=== PATIENT | male | born 1965 | race Caucasian/White ===

== ENCOUNTER 2023-08-23 16:02 | Emergency (ER) | payer BC ==
[2023-08-23] MEDS: Ondansetron 4 MG/2 ML SDV IVPUSH STA (16:37)
[2023-08-23] MEDS: Sodium Chloride 0.9% 1,000 ML IV ONE (16:37)
[2023-08-23] MEDS: Acetaminophen 325 MG Tab PO ONE (16:37)
[2023-08-23 16:45] LABS: BASOPHILS ABSOLUTE AUTO 0.04 10^3/uL (0.00-0.50); BASOPHILS PERCENT AUTO 0.5 % (0-1); EOSINOPHILS ABSOLUTE AUTO 0.03 10^3/uL (0.00-1.50); EOSINOPHILS PERCENT AUTO 0.4 % (0-6); HEMATOCRIT 47.2 % (42.0-52.0); HEMOGLOBIN 16.4 g/dL (14.0-18.0); IMMATURE GRAN ABSOLUTE AUTO 0.02 10^3/uL (0.00-0.49); IMMATURE GRAN PERCENT AUTO 0.2 % (0.0-4.9); LYMPHOCYTES ABSOLUTE AUTO 1.17 10^3/uL (0.60-5.00); LYMPHOCYTES PERCENT AUTO 14.1 % (24-44); MEAN CORPUSCULAR HEMOGLOBIN 33.5 pg (27.0-32.0); MEAN CORPUSCULAR HGB CONC 34.7 g/dL (32.0-36.0); MEAN CORPUSCULAR VOLUME 96.3 fL (83.0-97.0); MONOCYTES ABSOLUTE AUTO 0.58 10^3/uL (0.00-1.50); NEUTROPHILS ABSOLUTE AUTO 6.48 x10^3/uL (1.80-8.00); NEUTROPHILS PERCENT AUTO 77.8 % (41-71); PLATELET COUNT,PLT 128 10^3/uL (150-400); WHITE BLOOD CELL COUNT,WBC 8.3 10^3/uL (4.0-11.0)
[2023-08-23 16:57] LABS: ALANINE AMINOTRANSFERASE,ALT 143 U/L (12-78); ALBUMIN 4.1 g/dL (3.4-5.0); ALKALINE PHOSPHATASE 92 U/L (46-116); ASPARTATE AMNIOTRANSFERASE,AST 155 U/L (15-37); BILIRUBIN TOTAL 1.7 mg/dL (0.0-1.0); BLOOD UREA NITROGEN,BUN 5 mg/dL (7-18); C-REACTIVE PROTEIN < 0.50 mg/dL (<=0.50); CALCIUM 9.1 mg/dL (8.4-10.1); CARBON DIOXIDE,CO2 24 mmol/L (21-32); CHLORIDE,CL 99 mEq/L (98-106); EST CRCL DRUG DOSING (CG) 82.48 mL/min; ESTIMATED GFR 88 mL/min (>=60); GLUCOSE RANDOM 158 mg/dL (75-99); POTASSIUM,K 3.8 mEq/L (3.5-5.0); PROTEIN TOTAL,TP 7.9 g/dL (6.4-8.2); SODIUM,NA 139 mEq/L (136-145)
[2023-08-23 17:21] LABS: CORONAVIRUS COVID-19 NAA NEGATIVE (NEGATIVE); INFLUENZA A NAA NEGATIVE (NEGATIVE); INFLUENZA B NAA NEGATIVE (NEGATIVE); RESPIRATORY SYNCYTIAL VIR NAA NEGATIVE (NEGATIVE)
[2023-08-23] MEDS: Take Home: Ondansetron 4 MG Tab.DIS, 2 Tab Pack PO ONE (18:07)
== END 2023-08-23 18:10 | disposition home or self-care (01) ==
LOC: CC.ED 16:02
DX: R11.2 Nausea with vomiting, unspecified (principal)
CPT/HCPCS: 0241U; 36415; 71046; 80053; 85025; 86140; 96361; 96374; 99284; 99284-25; A9270-GY; J2405; J7030

== ENCOUNTER 2023-09-30 19:09 | Observation (INO) | payer BC ==
[2023-09-30] MEDS: Ondansetron 4 MG/2 ML SDV IVPUSH PRN (19:34)
[2023-09-30] MEDS: Sodium Chloride 0.9% 1,000 ML IV SCH ×2 (19:34→21:14)
[2023-09-30 19:36] LABS: BASOPHILS ABSOLUTE AUTO 0.06 10^3/uL (0.00-0.50); BASOPHILS PERCENT AUTO 0.7 % (0-1); EOSINOPHILS ABSOLUTE AUTO 0.06 10^3/uL (0.00-1.50); EOSINOPHILS PERCENT AUTO 0.7 % (0-6); HEMATOCRIT 44.5 % (42.0-52.0); HEMOGLOBIN 15.5 g/dL (14.0-18.0); IMMATURE GRAN ABSOLUTE AUTO 0.03 10^3/uL (0.00-0.49); IMMATURE GRAN PERCENT AUTO 0.3 % (0.0-4.9); LYMPHOCYTES PERCENT AUTO 13.5 % (24-44); MEAN CORPUSCULAR HEMOGLOBIN 34.7 pg (27.0-32.0); MEAN CORPUSCULAR HGB CONC 34.8 g/dL (32.0-36.0); MEAN CORPUSCULAR VOLUME 99.6 fL (83.0-97.0); MONOCYTES ABSOLUTE AUTO 0.59 10^3/uL (0.00-1.50); MONOCYTES PERCENT AUTO 6.6 % (0-10); NEUTROPHILS ABSOLUTE AUTO 6.94 x10^3/uL (1.80-8.00); NEUTROPHILS PERCENT AUTO 78.2 % (41-71); PLATELET COUNT,PLT 137 10^3/uL (150-400); RED BLOOD CELL COUNT 4.47 x10^6/uL (4.50-6.00); WHITE BLOOD CELL COUNT,WBC 8.9 10^3/uL (4.0-11.0)
[2023-09-30 19:49] LABS: ALBUMIN 3.7 g/dL (3.4-5.0); BILIRUBIN TOTAL 2.1 mg/dL (0.0-1.0); C-REACTIVE PROTEIN 0.92 mg/dL (<=0.50); CALCIUM 9.5 mg/dL (8.4-10.1); CREATININE 0.9 mg/dL (0.7-1.3); EST CRCL DRUG DOSING (CG) 91.65 mL/min; MAGNESIUM 1.7 mg/dL (1.8-2.4); POTASSIUM,K 3.6 mEq/L (3.5-5.0); PROTEIN TOTAL,TP 7.7 g/dL (6.4-8.2)
[2023-09-30] MEDS: LORazepam 2 MG/ML SDV IVPUSH ONE (20:02)
[2023-09-30] MEDS ORDERED: Ondansetron 4 MG/2 ML SDV IV PRN (20:39)
[2023-09-30] MEDS ORDERED: Ondansetron 4 MG Tab.DIS PO PRN (20:39)
[2023-09-30] MEDS ORDERED: Sodium Chloride 0.9% 10 ML Syringe FLUSH PRN (20:39)
[2023-09-30] MEDS: Thiamine 100 MG Tab PO SCH (21:13)
[2023-09-30] MEDS: Folic Acid 1 MG Tab PO SCH (21:13)
[2023-10-01] MEDS: LORazepam 2 MG/ML SDV IVPUSH PRN (04:29)
[2023-10-01 07:50] LABS: BASOPHILS ABSOLUTE AUTO 0.06 10^3/uL (0.00-0.50); BASOPHILS PERCENT AUTO 0.8 % (0-1); EOSINOPHILS ABSOLUTE AUTO 0.12 10^3/uL (0.00-1.50); EOSINOPHILS PERCENT AUTO 1.7 % (0-6); HEMATOCRIT 42.6 % (42.0-52.0); HEMOGLOBIN 14.4 g/dL (14.0-18.0); IMMATURE GRAN ABSOLUTE AUTO 0.02 10^3/uL (0.00-0.49); IMMATURE GRAN PERCENT AUTO 0.3 % (0.0-4.9); LYMPHOCYTES ABSOLUTE AUTO 1.26 10^3/uL (0.60-5.00); LYMPHOCYTES PERCENT AUTO 17.7 % (24-44); MEAN CORPUSCULAR HEMOGLOBIN 34.1 pg (27.0-32.0); MEAN CORPUSCULAR HGB CONC 33.8 g/dL (32.0-36.0); MEAN CORPUSCULAR VOLUME 100.9 fL (83.0-97.0); MONOCYTES ABSOLUTE AUTO 0.49 10^3/uL (0.00-1.50); MONOCYTES PERCENT AUTO 6.9 % (0-10); NEUTROPHILS ABSOLUTE AUTO 5.16 x10^3/uL (1.80-8.00); NEUTROPHILS PERCENT AUTO 72.6 % (41-71); PLATELET COUNT,PLT 120 10^3/uL (150-400); RED BLOOD CELL COUNT 4.22 x10^6/uL (4.50-6.00); WHITE BLOOD CELL COUNT,WBC 7.1 10^3/uL (4.0-11.0)
[2023-10-01 08:07] LABS: ALBUMIN 3.2 g/dL (3.4-5.0); BILIRUBIN TOTAL 2.7 mg/dL (0.0-1.0); C-REACTIVE PROTEIN 0.96 mg/dL (<=0.50); CALCIUM 8.8 mg/dL (8.4-10.1); CREATININE 0.8 mg/dL (0.7-1.3); EST CRCL DRUG DOSING (CG) 103.1 mL/min; MAGNESIUM 1.7 mg/dL (1.8-2.4); POTASSIUM,K 3.6 mEq/L (3.5-5.0); PROTEIN TOTAL,TP 6.6 g/dL (6.4-8.2)
[2023-10-01] MEDS: Take Home: LORazepam 0.5 MG Tab, 2 Tab Pack PO ONE (10:42)
[2023-10-01] MEDS: LORazepam 0.5 MG Tab ONE (12:29)
[2023-10-04] MEDS: Take Home: LORazepam 0.5 MG Tab, 2 Tab Pack PO ONE (20:02)
[2023-10-04] MEDS: LORazepam 0.5 MG Tab PO ONE (20:02)
== END 2023-10-01 09:40 | disposition home or self-care (01) ==
LOC: CC.ED 19:09 → CC.MS 20:16 → UNDOADMOB 20:16 → CC.MS 20:27 → UNDODISOB 10-01 09:40
PROVIDERS: ADMIT Nurse Practitioner Family; ATTEND Nurse Practitioner Family
DX: F10.930 Alcohol use, unspecified with withdrawal, uncomplicated (principal)
CPT/HCPCS: 36415; 80053; 83690; 83735; 85025; 86140; 96361; 96374; 96375; 96376; 99223; 99238; 99284-25; A9270-GY; G0378; J2060; J2405; J7030